=== PATIENT | female | born 1960 | race Caucasian/White ===

== ENCOUNTER 2016-12-15 01:27 | Emergency (ER) | payer OTHER ==
[~2016-12-15] VITALS: Ht 167.6 cm; Wt 50.0 kg
[2016-12-15 01:37] VITALS: BP 105/52; PULSE 92; RESP 16; TEMP 98.1; O2SAT 95
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
== END 2016-12-15 06:15 | disposition home or self-care (01) ==
LOC: NEPE 01:27
DX: F10.129 Alcohol abuse with intoxication, unspecified (principal); Z72.0 Tobacco use
CPT/HCPCS: 99283